=== PATIENT | female | born 1955 | race Caucasian/White ===

== ENCOUNTER 2019-02-21 14:54 | Day surgery (SDC) | payer BC, OTHER ==
[~2019-02-21] VITALS: Ht 160 cm; Wt 54.8 kg
[2019-02-21] VITALS (8 sets, daily range): BP systolic 115–162; BP diastolic 67–88
[~2019-02-21 14:54] MED LIST changes: -DULO30CA48; -LEVO100T; -LISI-556; -ROSU5TAB12
--- OUTSIDE RECORDS SUMMARY | 2019-02-21 15:07 | XMS REPORT | Continuity of Care Document ---
Author Organization Unknown Address Unknown Allergies Active Description Code Type Severity Reaction Onset Reported/Identified Relationship to Patient Clinical Status Yes No Known Allergies Drug Allergy 09/14/2012 Yes No Known Drug Allergies Drug Allergy 09/14/2012 Yes No Known Food Allergies Food Allergy 09/14/2012 Medications There is no data. Problems Date Dx Coded Attending Type Code Diagnosis Diagnosed By 09/15/2012 Aj Lamb MD Final 244.9 HYPOTHYROIDISM NOS 09/15/2012 Aj Lamb MD Final 272.4 HYPERLIPIDEMIA NEC NOS 09/15/2012 Aj Lamb MD Final 285.1 ACUTE POSTHEMOR ANEMIA 09/15/2012 Aj Lamb MD Final 414.01 COR -HOP[place] VESSEL 09/15/2012 Aj Lamb MD Final 786.59 CHEST PAIN NEC 09/15/2012 Aj Lamb MD Final 998.12 HEMATOMA COMPLICATING PX Procedures Code Description Performed By Performed On 00.40 PX ON 1 VESSEL Tony Thurston MD 09/14/2012 00.46 INSERT 2 VASC STENTS Tony Thurston MD 09/14/2012 00.66 PTCA/ATHERECTOMY Tony Thurston MD 09/14/2012 36.07 DRUG-ELUTING COR STENT Tony Thurston MD 09/14/2012 88.53 LT HEART ANGIOCARDIOGRAM Tony Thurston MD 09/14/2012 88.56 COR ARTERIOGRAM-2 CATH Tony Thurston MD 09/14/2012 Results Radiology Report from [id number] on 09/14/2012 17:06:00 Final ReportADMITTING DIAGNOSIS: CAD, Chest pain r/o pseudoaneurysmCT ABD/PELVIS W/O - 09/14/[address] [facility] [address] [facility]: INDICATION: HematomaMultiple contiguous noncontrasted axial CT images of the abdomenand pelvis are obtained. There is no previous study available atthis time for comparisonUnenhanced images of the liver, spleen and pancreas areunremarkable. No adrenal abnormality is identified. Both kidneysare excreting contrast from previous arteriogram study. There isno abdominal free fluid. Within the pelvis, there is a moderateamount of hematoma in the right inguinal region as well aswithin the anterior pelvic wall and in the extraperitoneal spaceresulting in deformity of the decompressed bladder. Evaluationfor active extravasation is limited without intravenouscontrast. There is an approximately 2.5 cm in diameter roundedhigh density nodule in the subcutaneous cutaneous tissues in theright groin within approximately 1.5 cm of the right commonfemoral artery. This could represent a pseudoaneurysm. Note ismade of what appears to be a left femoral arterial catheterreaching the external iliac artery.IMPRESSION: Moderate right inguinal and anterior pelvic wallhematoma with moderate amount of extraperitoneal hematoma in thepelvis resulting in compression of the bladder. In addition,there is an approximately 2.5 cm in diameter rounded structurein the anterior right inguinal region which could represent apseudoaneurysm. If warranted, ultrasonography may be useful forfurther assessment.Dictated on workstation # [id number] BY: HEATHER PORTER M.D., RADIOLOG ISTELECTRONICALLY SIGNED BY: HEATHER PORTER M.D., RADIOLOGISTD Sep 14 2012 4:36PT PH : Sep 14 2012 5:04PS Sep 14 2012 5:04P Radiology Report from [id number] on 09/14/2012 18:12:00 Final ReportADMITTING DIAGNOSIS: CAD, Chest pain r/o pseuaneursymCTA ABD/PELVIS W OR W/WO POST - 09/14/2012 [facility]P ON [facility] RESULT: INDICATION: Patient is status post heart catheterization. Thepatient has a retroperitoneal hematoma and questionablepseudoaneurysm, right groin.EXAMINATION: Axial imaging through the abdomen and pelvis wasperformed before and after the administration of intravenouscontrast utilizing CT angiography protocol.COMPARISON: Noncontrast CT from earlier the same day.FINDINGS: The lung bases are clear. The liver and spleen areunremarkable. Extrahepatic bile duct is prominent, likely owingto postcholecystectomy state. The pancreas, adrenal glands andkidneys are unremarkable. The abdominal aorta is normal incaliber. No free fluid in the abdomen is seen.Imaging through the pelvis again shows high density materialthroughout the pelvis and retroperitoneum, consistent withhemorrhage. This is similar to the CT performed earlier. Thereis an area of contrast blush in the right lower quadrant medialto the right common femoral artery. This blush measuresapproximately 10 mm in size and is suggestive of acute arterialextravasation. Whether this is contained within a pseudoaneurysmis difficult to determine. Ultrasound may be useful for furtherevaluation. This is more superior to the area of rounded densitydescribed on earlier CT. No other areas of active arterialextravasation are identified. Mass effect on the urinary bladderis again noted.IMPRESSION: 1. Large amount of retroperitoneal hemorrhage within the pelvis.There is a small focus of active arterial extravasation noted inthe right groin just medial to the right common femoral artery,measuring 10 mm in size. Ultrasound may be useful to determineif this is contained within a pseudoaneurysm.2. Results were discussed with Dr. Thurston prior to thisdictation.Dictated on workstation # [id number] BY: MELI POWERS M.D., RADIOLOGISTELECTRONICALLY SIGNED BY: MELI POWERS M.D., RADIOLOGISTD Sep 14 2012 5:21PT PJE: Sep 14 2012 6:10PS Sep 14 2012 6:10P Encounters ACCT No. Visit Date/Time Discharge Status Pt. Type Provider Facility Loc./Unit Complaint [id number] 09/14/2012 10:56:00 09/16/2012 16:26:00 DIS Inpatient Adonis WRIGHT, Aj Fowler [facility] on [address]
[2019-02-21 15:11] LABS: BASOPHILS % (AUTO) 0 % (0-10); EOSINOPHILS % (AUTO) 1 % (0-10); HEMATOCRIT 41 % (35-52); HEMOGLOBIN 14.2 G/DL (11.5-16.0); LYMPHOCYTES # (AUTO) 1.8 X 10^3 (1.0-4.0); LYMPHOCYTES % (AUTO) 27 % (12-44); MEAN CORPUSCULAR HEMOGLOBIN 30 PG (25-34); MEAN CORPUSCULAR HGB CONC 34 G/DL (32-36); MEAN CORPUSCULAR VOLUME 88 FL (80-99); MONOCYTES # (AUTO) 0.5 X 10^3 (0.0-1.0); MONOCYTES % (AUTO) 8 % (0-12); NEUTROPHILS # (AUTO) 4.2 X 10^3 (1.8-7.8); NEUTROPHILS % (AUTO) 65 % (42-75); PLATELET COUNT 234 10^3/uL (130-400); RED CELL DISTRIBUTION WIDTH 12.2 % (10.0-14.5); WHITE BLOOD COUNT 6.5 10^3/uL (4.3-11.0)
[2019-02-21] MEDS ORDERED: LEVO100T (15:17)
[2019-02-21] MEDS ORDERED: DULO30CA48 (15:17)
[2019-02-21] MEDS ORDERED: LISI-556 (15:17)
[2019-02-21] MEDS ORDERED: ROSU5TAB12 (15:17)
[2019-02-21 15:23] LABS: INR 0.9 (0.8-1.4); PROTHROMBIN TIME PATIENT 12.3 SEC (12.2-14.7)
[2019-02-21 15:29] LABS: ALANINE AMINOTRANSFERASE 17 U/L (0-55); ALBUMIN 4.4 GM/DL (3.2-4.5); ALKALINE PHOSPHATASE 71 U/L (40-136); BILIRUBIN,TOTAL 0.3 MG/DL (0.1-1.0); BUN/CREATININE RATIO 17; CALCIUM 9.5 MG/DL (8.5-10.1); CARBON DIOXIDE 21 MMOL/L (21-32); CHLORIDE 106 MMOL/L (98-107); CREATININE SERUM 0.69 MG/DL (0.60-1.30); GFR ESTIMATED > 60; GLUCOSE 93 MG/DL (70-105); MAGNESIUM 1.8 MG/DL (1.8-2.4); SODIUM 140 MMOL/L (135-145); TOTAL PROTEIN 6.9 GM/DL (6.4-8.2)
--- NOTE | 2019-02-21 15:37 | Diagnostic Imaging Report ---
INDICATION: Chest pain. TIME OF EXAM: 03:13 p.m. Correlation is made with prior study from 08/06/2012. FINDINGS: The heart size is normal. The pulmonary vascularity is unremarkable. The lungs are clear. No infiltrate, effusion or pneumothorax is detected. IMPRESSION: No acute cardiopulmonary process is detected. Dictated by: Dictated on workstation # [id number]
--- OUTSIDE RECORDS SUMMARY | 2019-02-21 15:45 | XMS REPORT | Continuity of Care Document ---
[...] 09/15/2012 Aj Lamb MD Final 414.01 COR -POINT LAY IRA VESSEL 09/15/2012 Aj Lamb MD Final 786.59 [...] Thurston MD 09/14/2012 Results Radiology Report from [id number] on 09/14/2012 17:06:00 Final ReportADMITTING DIAGNOSIS: CAD, [...] be useful forfurther assessment.Dictated on workstation # [id number] BY: HEATHER PORTER M.D., RADIOLOG ISTELECTRONICALLY SIGNED BY: HEATHER PORTER M.D., RADIOLOGISTD Sep 14 2012 4:36PT PH : Sep 14 2012 5:04PS Sep 14 2012 5:04P Radiology Report from [id number] on 09/14/2012 18:12:00 Final ReportADMITTING DIAGNOSIS: CAD, Chest pain r/o pseuaneursymCTA ABD/PELVIS W OR W/WO POST - 09/14/2012 HOSP ON [facility] RESULT: INDICATION: Patient is status post [...] Thurston prior to thisdictation.Dictated on workstation # [id number] BY: MELI POWERS M.D., RADIOLOGISTELECTRONICALLY SIGNED BY: MELI POWERS M.D., RADIOLOGISTD Sep 14 2012 5:21PT PJE: Sep 14 2012 6:10PS Sep 14 2012 6:10P Encounters ACCT No. Visit Date/Time Discharge Status Pt. Type Provider Facility Loc./Unit Complaint [id number] 09/14/2012 10:56:00 09/16/2012 16:26:00 DIS Inpatient Adonis WRIGHT, Aj Fowler [facility] on [address]
[2019-02-21] MEDS ORDERED: NS IV 1000 ML 2,000 ML ONE (15:49)
[2019-02-21] MEDS ORDERED: LIDOCAINE 1% INJ 20 ML 20 ML VIAL ONE (15:49)
[2019-02-21] MEDS ORDERED: HEParin (CATH LAB) 2,000 ML IV ONE (15:50)
--- NOTE | 2019-02-21 15:54 | ED Chest Pain ---
General Chief Complaint: Chest Pain Stated Complaint: CP Nursing Triage Note: sent over from DR hernandez office with a high troponin Nursing Sepsis Screen: No Definite Risk Source: patient Exam Limitations: no limitations History of Present Illness Date Seen by Provider: February 21, 2019 Time Seen by Provider: 15:30 Initial Comments Patient presents with chest pain since intermittent lasting less than 10:15 minutes. She has a history of stents and heart disease. Pains in the center chest nonradiating. Went to her doctor had an elevated troponin. He get an EKG on her which showed minimal depression faxed to the ER and sent her over. Allergies and Home Medications Allergies Coded Allergies: No Known Drug Allergies (Verified , 02/21/19) Home Medications Aspirin 81 Mg Tabec, 81 MG PO DAILY, (Reported) Clopidogrel 75 Mg Tablet, 75 MG PO DAILY, (Reported) Levothyroxine Sodium 150 Mcg Tablet, 150 MCG PO DAILY, (Reported) Patient Home Medication List Home Medication List Reviewed: Yes Review of Systems Review of Systems Constitutional: No chills, No diaphoresis EENTM: No Blurred Vision, No Double Vision Respiratory: Denies Cough, Denies Orthopnea Cardiovascular: See HPI, Chest Pain (not presently) Past Ptyrapt-Heauqw-Zgcqch Hx Patient Social History Alcohol Use: Denies Use Recreational Drug Use: No Smoking Status: Former Smoker Former Smoker, Quit: February 15, 2018 2nd Hand Smoke Exposure: No Recent Foreign Travel: No Contact w/Someone Who Travel: No Recent Infectious Disease Expo: No Recent Hopitalizations: Yes Immunizations Up To Date Date of Influenza Vaccine: Jul 03, 2012 Seasonal Allergies Seasonal Allergies: Yes Past Medical History Surgeries: Yes Coronary Stent, Gallbladder, Hysterectomy Respiratory: No Cardiac: No Hypertension Neurological: No Reproductive Disorders: No RN OR LVN History: Hysterectomy Sexually Transmitted Disease: No Genitourinary: No Gastrointestinal: No Musculoskeletal: No Endocrine: No HEENT: No Cancer: No Psychosocial: No Integumentary: No Blood Disorders: No Physical Exam Vital Signs Vital Signs - First Documented 02/21/19 14:57 Temp 98.5 Pulse 103 Resp 18 B/P (MAP) 126/91 (103) Pulse Ox 97 Capillary Refill : Less Than 3 Seconds Height, Weight, BMI Height: 5'3" Weight: 120lbs. 12.8oz. 54.458500oj; 21.25 BMI Method:Stated General Appearance: No Apparent Distress, WD/WN HEENT: PERRL/EOMI, Pharynx Normal, Moist Mucous Membranes Neck: Full Range of Motion, Normal Inspection, Non Tender Respiratory: No Accessory Muscle Use, No Respiratory Distress Cardiovascular: Regular Rate, Rhythm, Normal Peripheral Pulses Gastrointestinal: Normal Bowel Sounds, Non Tender, Soft Neurologic/Psychiatric: Alert, Oriented x3 Progress/Results/Core Measures Results/Orders Lab Results Laboratory Tests Test 02/21/19 15:00 Range/Units White Blood Count 6.5 4.3-11.0 10^3/uL Red Blood Count 4.72 4.35-5.85 10^6/uL Hemoglobin 14.2 11.5-16.0 G/DL Hematocrit 41 35-52 % Mean Corpuscular Volume 88 80-99 FL Mean Corpuscular Hemoglobin 30 25-34 PG Mean Corpuscular Hemoglobin Concent 34 32-36 G/DL Red Cell Distribution Width 12.2 10.0-14.5 % Platelet Count 234 130-400 10^3/uL Mean Platelet Volume 10.0 7.4-10.4 FL Neutrophils (%) (Auto) 65 42-75 % Lymphocytes (%) (Auto) 27 12-44 % Monocytes (%) (Auto) 8 0-12 % Eosinophils (%) (Auto) 1 0-10 % Basophils (%) (Auto) 0 0-10 % Neutrophils # (Auto) 4.2 1.8-7.8 X 10^3 Lymphocytes # (Auto) 1.8 1.0-4.0 X 10^3 Monocytes # (Auto) 0.5 0.0-1.0 X 10^3 Eosinophils # (Auto) 0.0 0.0-0.3 10^3/uL Basophils # (Auto) 0.0 0.0-0.1 10^3/uL Prothrombin Time 12.3 12.2-14.7 SEC INR Comment 0.9 0.8-1.4 Activated Partial Thromboplast Time 35 24-35 SEC Sodium Level 140 135-145 MMOL/L Potassium Level 4.0 3.6-5.0 MMOL/L Chloride Level 106 98-107 MMOL/L Carbon Dioxide Level 21 21-32 MMOL/L Anion Gap 13 5-14 MMOL/L Blood Urea Nitrogen 12 7-18 MG/DL Creatinine 0.69 0.60-1.30 MG/DL Estimat Glomerular Filtration Rate > 60 BUN/Creatinine Ratio 17 Glucose Level 93 70-105 MG/DL Calcium Level 9.5 8.5-10.1 MG/DL Corrected Calcium 9.2 8.5-10.1 MG/DL Magnesium Level 1.8 1.8-2.4 MG/DL Total Bilirubin 0.3 0.1-1.0 MG/DL Aspartate Amino Transf (AST/SGOT) 20 5-34 U/L Alanine Aminotransferase (ALT/SGPT) 17 0-55 U/L Alkaline Phosphatase 71 40-136 U/L Myoglobin 43.5 10.0-92.0 NG/ML Troponin I 0.106 H <0.028 NG/ML Total Protein 6.9 6.4-8.2 GM/DL Albumin 4.4 3.2-4.5 GM/DL My Orders Orders - SUKH VINES Cbc With Automated Diff (02/21/19 15:05) Magnesium (02/21/19 15:05) Chest 1 View, Ap/Pa Only (02/21/19 15:05) Ekg Tracing (02/21/19 15:05) Cardiac Profile 1 (02/21/19 15:05) Comprehensive Metabolic Panel (02/21/19 15:05) Myoglobin Serum (02/21/19 15:05) Protime With Inr (02/21/19 15:05) Partial Thromboplastin Time (02/21/19 15:05) O2 (02/21/19 15:05) Monitor-Rhythm Ecg Trace Only (02/21/19 15:05) Lipid Panel (02/22/19 06:00) Ed Iv/Invasive Line Start (02/21/19 15:05) Vital Signs/I&O 02/21/19 14:57 Temp 98.5 Pulse 103 Resp 18 B/P (MAP) 126/91 (103) Pulse Ox 97 Blood Pressure Mean: 103 Initial ECG Impression Date: February 21, 2019 Initial ECG Rhythm: Normal Sinus Comment Minimal V2, V3 and V4 ST depression 1 box Diagnostic Imaging Diagonstic Imaging: Xray Plain Films/CT/US/NM/MRI: chest Comments NAME: CHELSEA ESTES [facility] REC#: [id number] PHYSICIAN: SUKH VINES MD CC: MELI POWERS MD; SUKH VINES Page 1 of 1 RADIOLOGY REPORT [facility] [place] [place] CC: MELI POWERS MD; SUKH VINES Page 1 of 1 RADIOLOGY REPORT NAME: CHELSEA ESTES [facility] REC#: [id number] PT STATUS: REG SDC : 1955 PHYSICIAN: SUKH VINES MD ADMIT DATE: 02/21/19/CATH Signed Date of Exam: 02/21/19 CHEST 1 VIEW, AP/PA ONLY INDICATION: Chest pain. TIME OF EXAM: 03:13 p.m. Correlation is made with prior study from 08/06/2012. FINDINGS: The heart size is normal. The pulmonary vascularity is unremarkable. The lungs are clear. No infiltrate, effusion or pneumothorax is detected. IMPRESSION: No acute cardiopulmonary process is detected. Dictated by: Dictated on workstation # [id number] Dict: 02/21/19 1534 Trans: 02/21/19 1550 Interpreted by: MELI POWERS MD Electronically signed by: MELI POWERS MD 02/21/19 1550 Reviewed: Reviewed by Me Departure Communication (Admissions) Dr. Salcido came down that the patient in the ER examined her EKG and her and elected to take her to the [facility]. Impression Primary Impression: NSTEMI (non-ST elevated myocardial infarction) Disposition: ADMITTED INPATIENT Condition: Stable Admissions Decision to Admit Reason: Admit from ER (General) Decision to Admit/Date: February 21, 2019 Time/Decision to Admit Time: 15:40 Departure-Patient Inst. Referrals: CUBA MONTES MD (PCP/Family) Primary Care Physician SUKH VINES February 21, 2019 15:54
[2019-02-21] MEDS ORDERED: fentaNYL INJECTION 100 MCG/2 ML AMP ONE (16:07)
[2019-02-21] MEDS ORDERED: MIDAZOLAM 5 MG/5 ML (VERSED) VIAL ONE (16:07)
--- NOTE | 2019-02-21 16:13 | Cardiology History & Physical ---
HPI-Cardiology Cardiology Consultation Date of Consultation 02/21/19 Date of Admission Time Seen by Provider: 16:09 Indication: chest pain HPI 63 years old lady with history of coronary artery disease, had intervention done in 2011 in [facility] with a stent to the right coronary artery, has history of hypertension hyperlipidemia, no recent follow-up was made. She s tarted to have recurrent episodes of chest pain described it as dull in nature in the retrosternal area radiating to the left shoulder and left arm for the past week has been occurring on and off lasting up to 4 hours. Woke up this morning with chest pain radiating to the left shoulder and left arm and went to Dr. Oconnor's office, she had mild EKG changes and slight elevation in troponin. She was sent to the emergency room during my evaluation she was feeling better. Denied any active pain. Denied any palpitation, her troponin has increased compared to the initial troponin was done in Dr. Oconnor's office. PMH-Cardiology Immunizations Up To Date Date of Influenza Vaccine: Jul 03, 2012 Seasonal Allergies Seasonal Allergies: Yes Surgeries Yes Respiratory No Cardiovascular No Neurological No Reproductive System Hx Reproductive Disorders: No Sexually Transmitted Disease: No Hysterectomy Genitourinary No Gastrointestinal No Musculoskeletal No Endocrine No HEENT No Cancer No Psychosocial No Integumentary No Blood Transfusions No Other PMHx described below Social History Patient Social History Marrital Status: Employed/Student: employed Alcohol Use: Denies Use Recreational Drug Use: No Smoking: Former smoker Recent Foreign Travel: No Contact w/other who traveled: No Recent Infectious Disease Expo: No Family Hx Other noncontributory ROS-Cardiology Review of Systems General: No Chills, No Night Sweats, No Fatigue, No Malaise, No Appetite HEENT: No Head Aches, No Visual Changes, No Eye Pain, No Ear Pain, No Dysphasia, No Sinus Congestion, No Post Nasal Drip, No Sore Throat Pulmonary: No Dyspnea, No Cough, No Pleuritic Chest Pain Cardiovascular: Chest Pain; No: Palpitations, Orthopnea, Paroxysmal Noc. Dyspnea, Edema, Lt Headedness Gastrointestinal: No: Nausea, Vomiting, Abdominal Pain, Diarrhea, Constipation, Melena, Hematochezia Genitourinary: No Dysuria, No Frequency, No Incontinence, No Hematuria, No Retention Musculoskeletal: No: neck pain, shoulder pain, arm pain, back pain, hand pain, leg pain, foot pain Neurological: No: Weakness, Numbness, Incoordination, Change in speech, Confusion, Seizures Home Medications & Allergies Allergies: Coded Allergies: No Known Drug Allergies (Verified , 02/21/19) Home Medication List Reviewed: Yes Exam-Cardiology Vital Signs Vital Signs Date Time Temp Pulse Resp B/P (MAP) Pulse Ox O2 Delivery O2 Flow Rate FiO2 02/21/19 14:57 98.5 103 18 126/91 (103) 97 Exam General Appearance: Alert, Oriented X3, Cooperative, No Acute Distress HEENT: Atraumatic, PERRLA Respiratory: Clear to Auscultation, Normal Air Movement Cardiovascular: Regular Rate, Normal S1, Normal S2, No Murmurs Abdominal: Normal Bowel Sounds, Soft, No Tenderness, No Hepatosplenomegaly, No Masses Extremities: No Clubbing, No Cyanosis, No Edema, Normal Pulses, No Tenderness/Swelling Skin: No Rashes, No Breakdown, No Significant Lesion Neuro: Normal Gait, Normal Speech, Strength at 5/5 X4 Ext, Normal Tone, Sensation Intact Psych/Mental Status: Mental Status NL, Mood NL Results Labs Labs Laboratory Tests 02/21/19 15:00: White Blood Count 6.5, Red Blood Count 4.72, Hemoglobin 14.2, Hematocrit 41, Mean Corpuscular Volume 88, Mean Corpuscular Hemoglobin 30, Mean Corpuscular Hemoglobin Concent 34, Red Cell Distribution Width 12.2, Platelet Count 234, Mean Platelet Volume 10.0, Neutrophils (%) (Auto) 65, Lymphocytes (%) (Auto) 27, Monocytes (%) (Auto) 8, Eosinophils (%) (Auto) 1, Basophils (%) (Auto) 0, Neutrophils # (Auto) 4.2, Lymphocytes # (Auto) 1.8, Monocytes # (Auto) 0.5, Eosinophils # (Auto) 0.0, Basophils # (Auto) 0.0, Prothrombin Time 12.3, INR Comment 0.9, Activated Partial Thromboplast Time 35, Sodium Level 140, Potassium Level 4.0, Chloride Level 106, Carbon Dioxide Level 21, Anion Gap 13, Blood Urea Nitrogen 12, Creatinine 0.69, Estimat Glomerular Filtration Rate > 60, BUN/Creatinine Ratio 17, Glucose Level 93, Calcium Level 9.5, Corrected Calcium 9.2, Magnesium Level 1.8, Total Bilirubin 0.3, Aspartate Amino Transf (AST/SGOT) 20, Alanine Aminotransferase (ALT/SGPT) 17, Alkaline Phosphatase 71, Myoglobin 43.5, Troponin I 0.106H, Total Protein 6.9, Albumin 4.4 A/P-Cardiology Admission Diagnosis Non-ST elevation myocardial infarction Coronary artery disease Hypertension Hyperlipidemia Admission Status: Observation Assessment/Plan Non-ST elevation myocardial infarction, has been having unstable angina for the past week, had an episode of chest pain this morning with progressively elevation in troponin level. Discussed the management plan and will proceed w ith emergency cardiac catheterization Coronary artery disease history of failed intervention 2011, she was referred to Dr. Zuniga's [facility] and had 2 stents to the right coronary artery. Does not have the stent cards, no further workup was done recently. Hypertension, I will restart home medication monitor blood pressure Hyperlipidemia, maintained on rosuvastatin. Hypothyroidism Depression Tobaccoism, has stopped smoking recently. encouraged to continue with smoking cessation History of cholecystectomy, hysterectomy BEV LUNDY MD February 21, 2019 16:13
--- NOTE | 2019-02-21 16:14 | Cardiac Procedure Note-CS/ASA ---
Pre-Procedure Note Pre-Op Procedure Note H&P Reviewed The H&P was reviewed, patient examined and no changes noted. Date H&P Reviewed: February 21, 2019 Time H&P Reviewed: 16:13 Conscious Sedation Pre-Proced Time 16:13 ASA Score 3 For ASA 3 and 4: Consider anesthesia and medical clearance. Also, for patients with a history of failed moderate sedation consider anesthesia. Airway Lungs Heart ASA score ASA 1: a normal healthy patient ASA 2: a patient with a mild systemic disease (mid diabetes, controlled hypertension, obesity x ASA 3: a patient with a severe systemic disease that limits activity (angina, COPD, prior Myocardial infarction) ASA 4: a patient with an incapacitating disease that is a constant threat to life (CHF, renal failure) ASA 5: a moribund patient not expected to survive 24 hrs. (ruptured aneurysm) ASA 6: a declared brain- patient whose organs are being harvested. For emergent operations, add the letter E after the classification Mallampati Classification Grade 3 Sedation Plan Analgesia, Amnesia, Plan communicated to team members, Discussed options with patient/fam, Discussed risks with patient/fam The patient is an appropriate candidate to undergo the planned procedure, sedation, and anesthesia. The patient immediately re-assessed prior to indication. BEV LUNDY MD February 21, 2019 16:14
[2019-02-21] MEDS ORDERED: HEParin 1000 UNIT/ML (10ML VIAL) FOR BOLUS ONE (16:43)
[2019-02-21] MEDS ORDERED: NITRO DRIP 25000 MCG/D5W 250 ML IV ONE (16:43)
[2019-02-21] MEDS ORDERED: EPTIFIBATIDE BOLUS 10 ML IV ONE (16:44)
[2019-02-21] MEDS ORDERED: CLOPIDOGREL 300 MG (PLAVIX) TABLET PO ONE (17:07)
[2019-02-21] MEDS ORDERED: PATIENT MAY USE OWN MEDS, ALL PO SCH (17:30)
--- NOTE | 2019-02-21 17:34 | Cardiac Cath Report ---
Cardiac Cath Report Physician (s)/Chemical Applicator (s) Physician BEV LUNDY MD Pre-Procedure Diagnosis Pre-Procedure Diagnosis: coronary artery disease, non-ST elevation myocardial infarction Post-Procedure Note Procedure Start Date: February 21, 2019 Name of Procedure: Left heart catheterization Left ventriculogram Emergency stenting to the circumflex artery Balloon angioplasty to the right coronary artery Findings/Procedure Note PROCEDURE NOTE: 63-year-old lady with history of coronary artery disease history of stenting to the right coronary artery 2011, hypertension hyperlipidemia, admitted with non- ST elevation myocardial infarction, recurrent chest pain with elevated troponin that continue to increase. She was brought from the emergency room for emergency cardiac catheterization possible PTCA. After explaining the procedure to the patient, all pros and cons were explained, all questions were answered. The patient signed the consent and then she was placed on the cardiac catheterization laboratory. Groin was prepped SL fashion local anesthesia was used. Sheath placed in the right femoral artery. Ora right and left catheter were used to access the coronary system. Pigtail was used to access the left ventricular cavity. Left ventriculogram was done. Patient was given 5000 units of heparin, double bolus of Integrilin. FL guide was used to access the left coronary system, had subtotal occlusion of the circumflex artery, BMW wire was advanced carefully and positioned distally predilatation with Emerge 3.0 x 15 mm balloon followed by deployment of Xience Nicol 3.0 x 18 mm drug-eluting stent deployed under 14 hernesto up to 3.07 mm, angiogram showed excellent results, no residual stenosis. Patient has severe in-stent restenosis in the right coronary artery, I advanced JR guide to the right carotid system then advanced BMW wire and parked distally, used emerge 2.5 x 15 mm under elevated pressure up to 16 hernesto expanded the stent with improvement of the in-stent restenosis, about 20-30 percent residual stenosis was noted. At the end of the procedure the sheath was sutured in place FINDINGS: Hemodynamics LV 133/21, end-diastolic pressure 21 Aorta 120/72 mean of 94 ANATOMY: Left Main is free of obstructive disease Left Anterior Descending has mild disease nonobstructive disease Left Circumflex is moderate in size artery, subtotally occluded proximally, successful balloon angioplasty then deployment of Nicol 3.0 x 18 mm expanded to 3.07 mm with excellent results with no residual stenosis Right Coronory Artery has multiple segment of the proximal and mid right coronary artery with severe in-stent restenosis in the midportion, successful balloon angioplasty using emerge 2.5 x 15 mm expanded to 2.6 mm under high- pressure with excellent results, 20-30 percent residual stenosis LV Gram was done showing normal left ventricular size and systolic function estimated ejection fraction 60 percent CONCLUSION: 1. Non-ST HI with Subtotal occlusion of a moderate to large circumflex artery with successful balloon to plasty then deployment of drug-eluting Nicol stent 3.0 x 18 mm expanded to 3.07 mm with excellent results 2. Severe in-stent restenosis in the right coronary artery successful balloon angioplasty using emerge 2.5 x 15 mm with multiple inflation up to 15-16 hernesto with excellent results, 20-30 percent residual stenosis 3. Mild disease in the LAD nonobstructive disease 4. Normal left ventricular size and systolic function estimated ejection fraction 60 percent DISCUSSION AND RECOMMENDATION: I will continue maximizing medical therapy, Educated on avoiding tobacco product, monitor lipids Anesthesia Type: Conscious Sedation Estimated blood loss (mL): 25 ml Contrast Amount: 132 ml Total Radiation Dose: 614 mGy Post-Procedure Diagnosis Post-operative diagnosis: Non-ST elevation myocardial infarction Coronary artery disease Hypertension Hyperlipidemia BEV LUNDY MD February 21, 2019 17:34
[2019-02-21] MEDS ORDERED: ATROPINE INJECTION 1 MG/10 ML SYR (ABBOTT) ONE (20:55)
[2019-02-21] MEDS ORDERED: fentaNYL INJECTION 100 MCG/2 ML AMP IVP ONE (21:00)
[2019-02-21] MEDS: NS IV 1000 ML 1,000 ML IV SCH (22:44)
[2019-02-22] VITALS (8 sets, daily range): BP systolic 91–119; BP diastolic 52–70
[2019-02-22] MEDS: NS IV 1000 ML 1,000 ML IV SCH (03:36)
[2019-02-22 03:46] LABS: HEMOGLOBIN 11.9 G/DL (11.5-16.0); MEAN PLATELET VOLUME 10.4 FL (7.4-10.4); RED CELL DISTRIBUTION WIDTH 12.2 % (10.0-14.5); WHITE BLOOD COUNT 5.3 10^3/uL (4.3-11.0)
[2019-02-22 04:12] LABS: BUN/CREATININE RATIO 14; CALCIUM 8.7 MG/DL (8.5-10.1); CARBON DIOXIDE 20 MMOL/L (21-32); CHLORIDE 111 MMOL/L (98-107); CHOLESTEROL 119 MG/DL (< 200); CREATININE SERUM 0.65 MG/DL (0.60-1.30); GFR ESTIMATED > 60; GLUCOSE 68 MG/DL (70-105); HDL CHOLESTEROL 28 MG/DL (40-60); POTASSIUM 3.6 MMOL/L (3.6-5.0); SODIUM 141 MMOL/L (135-145); TRIGLYCERIDES 125 MG/DL (<150); VLDL CHOLESTEROL 25 MG/DL (5-40)
--- NOTE | 2019-02-22 07:39 | Cardiology Discharge Summary ---
Diagnosis/Chief Complaint Date of Admission February 212018 Date of Discharge February 222018 Admission Diagnosis Non-ST elevation myocardial infarction Coronary artery disease Hypertension Hyperlipidemia Discharge Diagnosis non-ST elevation myocardial infarction Coronary artery disease Hypertension Hyperlipidemia Chief Complaint/HPI Chief Complaint/HPI 63 years old lady with history of coronary artery disease, had intervention done in 2011 in [facility] with a stent to the right coronary artery, has history of hypertension hyperlipidemia, no recent follow-up was made. She started to have recurrent episodes of chest pain described it as dull in nature in the retrosternal area radiating to the left shoulder and left arm for the past week has been occurring on and off lasting up to 4 hours. Woke up this morning with chest pain radiating to the left shoulder and left arm and went to Dr. Oconnor's office, she had mild EKG changes and slight elevation in troponin. She was sent to the emergency room during my evaluation she was feeling better. Denied any active pain. Denied any palpitation, her troponin has increased compared to the initial troponin was done in Dr. Oconnor's office. Discharge Summary Hospital Course Was the Problem List Reviewed?: Yes Hospital Course Non-ST elevation myocardial infarction, emergency cardiac catheterization was done with stenting to the circumflex artery and balloon angioplasty or in-stent restenosis in the right coronary artery Coronary artery disease history of failed intervention 2011, she was [facility] and had 2 stents to the right coronary artery. Does not have the stent cards, no further workup was done recently. Cardiac catheterization report: 1. Non-ST ND with Subtotal occlusion of a moderate to large circumflex artery with successful balloon to plasty then deployment of drug-eluting Nicol stent 3.0 x 18 mm expanded to 3.07 mm with excellent results 2. Severe in-stent restenosis in the right coronary artery successful balloon angioplasty using emerge 2.5 x 15 mm with multiple inflation up to 15-16 hernesto with excellent results, 20-30 percent residual stenosis 3. Mild disease in the LAD nonobstructive disease 4. Normal left ventricular size and systolic function estimated ejection fraction 60 percent Hypertension, well controlled on current medication continue to monitor Hyperlipidemia, maintained on rosuvastatin, well controlled continue to monitor Hypothyroidism, continue on thyroid replacement Depression Tobaccoism, has stopped smoking recently. encouraged to continue with smoking cessation History of cholecystectomy, hysterectomy Labs Laboratory Tests 02/21/19 15:00: Troponin I 0.106H 02/21/19 20:50: Activated Partial Thromboplast Time 44H 02/22/19 03:20: Troponin I 0.939*H, Red Blood Count 4.09L, Chloride Level 111H, Carbon Dioxide Level 20L, Glucose Level 68L, HDL Cholesterol 28L Procedures None. Discharge Physical Examination Allergies: Coded Allergies: No Known Drug Allergies (Verified , 02/21/19) Vitals & I&Os Vital Signs Date Time Temp Pulse Resp B/P (MAP) Pulse Ox O2 Delivery O2 Flow Rate FiO2 02/22/19 06:00 69 10 116/70 (85) Room Air 02/22/19 05:00 96 02/22/19 00:01 97.6 General Appearance: Alert, Oriented X3, Cooperative, No Acute Distress HEENT: Atraumatic, PERRLA Respiratory: Clear to Auscultation, Normal Air Movement Cardiovascular: Regular Rate, Normal S1, Normal S2, No Murmurs Abdominal: Normal Bowel Sounds, Soft, No Tenderness, No Hepatosplenomegaly, No Masses Extremities: No Clubbing, No Cyanosis, No Edema, Normal Pulses, No Tenderness/Swelling Skin: No Rashes, No Breakdown, No Significant Lesion Neuro: Normal Gait, Normal Speech, Strength at 5/5 X4 Ext, Normal Tone, Sensation Intact, Cranial Nerves 3-12 NL, Reflexes 2+ Psych/Mental Status: Mental Status NL, Mood NL Discharge Home Medications Reviewed and agree with Discharge Medication list on patient's Discharge Instruction sheet Instructions to Patient/Family Please see electronic discharge instructions given to patient. Clinical Quality Measures Admission Status Admission Status: Observation Reason for Inpatient Admission: non-ST elevation myocardial infarction BEV LUNDY MD February 22, 2019 07:39
--- NOTE | 2019-02-22 07:40 | Discharge Inst-Post CATH ---
Discharge Inst-CATH/EP Post Cardiac Cath/EP D/C Inst Follow Up/Plan Appointment with Dr. LUNDY's office in 2-4 weeks <b>CARDIAC CATH/EP PROCEDURE DISCHARGE INSTRUCTIONS</b> Cardiac Rehab Please be expecting a follow up call from Cardiac Rehab within in one week. ACTIVITY * Go Home directly and rest. * Limit activity of the leg (or wrist if it was used) for 7 days including aerobics, swimming, jogging, bicycling, etc. * Restrict stair-climbing for 7 days if possible, if not, climb up with your non-cath leg, then bring together on the same step. * Avoid lifting, pushing, pulling or excessive movement of the affected extremity for 7 days. * Customary sexual activity may be resumed after 2 days-use caution not to use a position that strains or causes pain to the affected extremity. * No driving for 24 hours. * NO SMOKING. * Avoid straining for bowel movements for 7 days. * Gentle walking on level ground is allowed. * Returning to work will depend on the type of procedure and the results. Your doctor will discuss this with you. CALL YOUR DOCTOR FOR ANY OF THE FOLLOWING: *If bleeding from the puncture site occurs- Apply gentle pressure to site with clean cloth and call your doctor or EMS. * If a knot or lump forms under the skin, increases in size, or causes pain. * If bruising appears to be worsening or moving further down your leg instead of disappearing. * Temperature above 101 F. CARE OF YOUR GROIN INCISION; * Bruising or purple discoloration of the skin near the puncture site is common. * You may shower only, no bathtub bathing for 5 days. Be careful to avoid slipping as your leg may feel stiff. * If a closure device was used on your femoral artery, please see the attached guide regarding care of the device and your leg. * Leave dressing on FOR 24 hours. CARE OF YOUR WRIST INCISION; * Bruising or purple discoloration of the skin near the puncture site is common. * You may shower. * DO NOT submerge wrist. * Leave dressing on FOR 24 hours. BEV LUNDY MD February 22, 2019 07:40
[2019-02-22] MEDS ORDERED: DULoxetine 30 MG (CYMBALTA) CAP PO SCH (09:00)
[2019-02-22] MEDS ORDERED: lisINopril 5 MG (PRINIVIL) TABLET PO SCH (09:00)
[2019-02-22] MEDS ORDERED: ROSUVASTATIN 5 MG (CRESTOR) TABLET PO SCH (09:00)
[2019-02-22] MEDS ORDERED: ASPIRIN E.C. 81 MG (ECOTRIN) TAB PO SCH (09:00)
[2019-02-22] MEDS ORDERED: CLOPIDOGREL 75 MG (PLAVIX) TABLET PO SCH (09:00)
[2019-02-22] MEDS ORDERED: LEVOTHYROXINE 100 MCG (LEVOTHROID) TAB PO SCH (09:00)
[2019-02-22] MEDS ORDERED: LEVOTHYROXINE 150 MCG (LEVOTHROID) TAB PO SCH (09:00)
== END 2019-02-22 08:00 ==
LOC: ER 14:54 → EDUNIT# 14:54 → CATH 15:42 → ICU 17:47 → SDC 17:59 → CATH 02-22 08:00
PROVIDERS: ATTEND Internal Medicine Cardiovascular Disease
DX: I21.4 Non-ST elevation (NSTEMI) myocardial infarction (principal); I25.10 Atherosclerotic heart disease of native coronary artery without angina pectoris; I10 Essential (primary) hypertension; E78.5 Hyperlipidemia, unspecified; Z95.5 Presence of coronary angioplasty implant and graft; E03.9 Hypothyroidism, unspecified; F32.9 Major depressive disorder, single episode, unspecified; Z87.891 Personal history of nicotine dependence; Z79.82 Long term (current) use of aspirin; Z79.899 Other long term (current) drug therapy
CPT/HCPCS: 36415; 71045; 80048; 80053; 80061; 83735; 83874; 84484; 85025; 85027; 85610; 85730; 93005; 93041; 93458

== ENCOUNTER → 2019-02-21 | Outpatient (CLI) | payer BC, OTHER ==
[~2019-02-21] MED LIST: ASP81TEC PO; ATOR40TA PO; CEPH500C PO; CLPD75T PO; DULO30CA48; LEVO100T; LEVO175T2 PO; LISI-556; LVT.15T PO; OXYC-12 PO; ROSU5TAB12
[2019-02-21 11:47] LABS: BASOPHILS % (AUTO) 0 % (0-10); EOSINOPHILS % (AUTO) 1 % (0-10); HEMATOCRIT 44 % (35-52); HEMOGLOBIN 14.9 G/DL (11.5-16.0); LYMPHOCYTES # (AUTO) 1.3 X 10^3 (1.0-4.0); LYMPHOCYTES % (AUTO) 18 % (12-44); MEAN CORPUSCULAR HEMOGLOBIN 30 PG (25-34); MEAN CORPUSCULAR HGB CONC 34 G/DL (32-36); MEAN CORPUSCULAR VOLUME 89 FL (80-99); MEAN PLATELET VOLUME 10.2 FL (7.4-10.4); MONOCYTES # (AUTO) 0.4 X 10^3 (0.0-1.0); MONOCYTES % (AUTO) 6 % (0-12); NEUTROPHILS # (AUTO) 5.1 X 10^3 (1.8-7.8); NEUTROPHILS % (AUTO) 75 % (42-75); PLATELET COUNT 229 10^3/uL (130-400); RED CELL DISTRIBUTION WIDTH 12.3 % (10.0-14.5); WHITE BLOOD COUNT 6.9 10^3/uL (4.3-11.0)
[2019-02-21 12:12] LABS: ALANINE AMINOTRANSFERASE 17 U/L (0-55); ALBUMIN 4.5 GM/DL (3.2-4.5); ALKALINE PHOSPHATASE 74 U/L (40-136); BILIRUBIN,TOTAL 0.3 MG/DL (0.1-1.0); BUN/CREATININE RATIO 18; CALCIUM 9.7 MG/DL (8.5-10.1); CARBON DIOXIDE 22 MMOL/L (21-32); CHLORIDE 107 MMOL/L (98-107); CREATININE SERUM 0.71 MG/DL (0.60-1.30); GFR ESTIMATED > 60; GLUCOSE 89 MG/DL (70-105); SODIUM 141 MMOL/L (135-145); TOTAL PROTEIN 7.1 GM/DL (6.4-8.2)
[2019-02-21 12:18] LABS: CREATINE KINASE MB 2.4 NG/ML (<6.6)
== END ==
LOC: LAB 11:25
PROVIDERS: ATTEND Nurse Practitioner Family
DX: R07.89 Other chest pain (principal)
CPT/HCPCS: 36415; 80053; 82553; 84484; 85025; 85379

== ENCOUNTER 2019-03-21 14:02 | Outpatient (RCR) | payer OTHER ==
[~2019-03-21 14:02] MED LIST changes: +DULO30CA48; +LEVO100T; +LISI-556; +ROSU5TAB12
== END 2019-04-13 | disposition home or self-care (01) ==
LOC: CR3 14:02
PROVIDERS: ATTEND Physician Assistant
DX: Z29.8 Encounter for other specified prophylactic measures (principal)

== ENCOUNTER → 2019-06-27 | Outpatient (CLI) | payer OTHER ==
[~2019-06-27] MED LIST changes: -DULO30CA48; +DULO30CA49; -ROSU5TAB12; +ROSU5TAB13
[2019-06-27 09:13] LABS: ALANINE AMINOTRANSFERASE 19 U/L (0-55); ALBUMIN 4.3 GM/DL (3.2-4.5); ALKALINE PHOSPHATASE 69 U/L (40-136); BILIRUBIN,TOTAL 0.3 MG/DL (0.1-1.0); BUN/CREATININE RATIO 14; CALCIUM 9.7 MG/DL (8.5-10.1); CARBON DIOXIDE 26 MMOL/L (21-32); CHLORIDE 108 MMOL/L (98-107); CHOLESTEROL 150 MG/DL (< 200); CREATININE SERUM 0.65 MG/DL (0.60-1.30); GFR ESTIMATED > 60; GLUCOSE 91 MG/DL (70-105); HDL CHOLESTEROL 36 MG/DL (40-60); POTASSIUM 4.4 MMOL/L (3.6-5.0); SODIUM 142 MMOL/L (135-145); TOTAL PROTEIN 7.1 GM/DL (6.4-8.2); TRIGLYCERIDES 140 MG/DL (<150); VLDL CHOLESTEROL 28 MG/DL (5-40)
== END ==
LOC: LAB 08:39
PROVIDERS: ATTEND Internal Medicine Cardiovascular Disease
DX: I25.10 Atherosclerotic heart disease of native coronary artery without angina pectoris (principal); E78.2 Mixed hyperlipidemia; R94.31 Abnormal electrocardiogram [ECG] [EKG]
CPT/HCPCS: 36415; 80053; 80061

== ENCOUNTER → 2020-12-25 | Outpatient (CLI) | payer OTHER ==
[~2020-12-25] MED LIST changes: -LISI-556; +LISI-729
[2020-12-25 09:33] LABS: BASOPHILS % (AUTO) 0 % (0-10); EOSINOPHILS # (AUTO) 0.1 10^3/uL (0.0-0.3); EOSINOPHILS % (AUTO) 2 % (0-10); HEMATOCRIT 43 % (35-52); LYMPHOCYTES # (AUTO) 1.7 10^3/uL (1.0-4.0); LYMPHOCYTES % (AUTO) 25 % (12-44); MEAN CORPUSCULAR HEMOGLOBIN 30 pg (25-34); MEAN CORPUSCULAR HGB CONC 33 g/dL (32-36); MEAN CORPUSCULAR VOLUME 92 fL (80-99); MEAN PLATELET VOLUME 10.1 fL (9.0-12.2); MONOCYTES # (AUTO) 0.4 10^3/uL (0.0-1.0); MONOCYTES % (AUTO) 6 % (0-12); NEUTROPHILS # (AUTO) 4.6 10^3/uL (1.8-7.8); NEUTROPHILS % (AUTO) 67 % (42-75); PLATELET COUNT 240 10^3/uL (130-400); WHITE BLOOD COUNT 6.8 10^3/uL (4.3-11.0)
[2020-12-25 09:55] LABS: ALANINE AMINOTRANSFERASE 19 U/L (0-55); ALBUMIN 4.1 GM/DL (3.2-4.5); ALKALINE PHOSPHATASE 64 U/L (40-136); BILIRUBIN,TOTAL 0.4 MG/DL (0.1-1.0); BUN/CREATININE RATIO 22; CALCIUM 9.1 MG/DL (8.5-10.1); CARBON DIOXIDE 23 MMOL/L (21-32); CHLORIDE 106 MMOL/L (98-107); CHOLESTEROL 150 MG/DL (< 200); CREATININE SERUM 0.68 MG/DL (0.60-1.30); GFR ESTIMATED > 60; GLUCOSE 137 MG/DL (70-105); HDL CHOLESTEROL 38 MG/DL (40-60); POTASSIUM 3.9 MMOL/L (3.6-5.0); SODIUM 139 MMOL/L (135-145); TOTAL PROTEIN 6.7 GM/DL (6.4-8.2); TRIGLYCERIDES 165 MG/DL (<150); VLDL CHOLESTEROL 33 MG/DL (5-40)
== END ==
LOC: LAB 09:13
DX: E78.2 Mixed hyperlipidemia (principal); R53.83 Other fatigue
CPT/HCPCS: 36415; 80053; 80061; 84443; 85025

== ENCOUNTER → 2021-03-03 | Outpatient (CLI) | payer OTHER | LOC: RAD | DX: S99.921A Unspecified injury of right foot, initial encounter (principal); X58.XXXA Exposure to other specified factors, initial encounter ==

== ENCOUNTER → 2021-03-03 | Outpatient (CLI) | payer OTHER ==
--- NOTE | 2021-03-03 14:18 | Diagnostic Imaging Report ---
INDICATION: Injury COMPARISON: None available TECHNIQUE: 3 radiographs of the right foot toes dated 03/03/2021 FINDINGS: Acute essentially nondisplaced oblique fracturing of the 3rd digit proximal phalanx is identified without definite intra-articular extension. No additional fracture or dislocation. No destructive osseous process. Mild scattered degenerative changes, greatest involving the 1st MTP joint. IMPRESSION: Acute essentially nondisplaced fracturing involving the mid shaft of the 3rd digit proximal phalanx without intra-articular extension. Mild scattered degenerative changes. Dictated by: Dictated on workstation # [id number]
== END ==
LOC: RAD 10:40
DX: S92.911A Unspecified fracture of right toe(s), initial encounter for closed fracture (principal); X58.XXXA Exposure to other specified factors, initial encounter; M19.071 Primary osteoarthritis, right ankle and foot
CPT/HCPCS: 73660

== ENCOUNTER → 2021-04-29 | Outpatient (CLI) | payer OTHER ==
[2021-04-29 15:42] LABS: HEMATOCRIT 44 % (35-52); HEMOGLOBIN 14.6 g/dL (11.5-16.0); MEAN CORPUSCULAR HEMOGLOBIN 30 pg (25-34); MEAN CORPUSCULAR HGB CONC 33 g/dL (32-36); MEAN CORPUSCULAR VOLUME 93 fL (80-99); MEAN PLATELET VOLUME 10.2 fL (9.0-12.2); PLATELET COUNT 251 10^3/uL (130-400); WHITE BLOOD COUNT 8.6 10^3/uL (4.3-11.0)
[2021-04-29 15:53] LABS: ALBUMIN 4.4 GM/DL (3.2-4.5); POTASSIUM 4.5 MMOL/L (3.6-5.0)
[2021-04-29 15:54] LABS: CALCIUM 9.6 MG/DL (8.5-10.1)
[2021-04-29 15:56] LABS: TOTAL PROTEIN 7.3 GM/DL (6.4-8.2)
[2021-04-29 15:57] LABS: BILIRUBIN,TOTAL 0.2 MG/DL (0.1-1.0)
[2021-04-29 15:59] LABS: CREATININE SERUM 0.73 MG/DL (0.60-1.30)
== END ==
LOC: LAB 15:16
DX: E78.5 Hyperlipidemia, unspecified (principal); R53.83 Other fatigue
CPT/HCPCS: 36415; 80053; 80061; 84443; 85027

== ENCOUNTER → 2021-10-21 | Outpatient (CLI) | payer OTHER ==
[~2021-10-21] MED LIST changes: -LISI-729; +LISI5TAB20
== END ==
LOC: CARD 13:00
PROVIDERS: ATTEND Internal Medicine Cardiovascular Disease
DX: I35.8 Other nonrheumatic aortic valve disorders (principal); I10 Essential (primary) hypertension; I25.10 Atherosclerotic heart disease of native coronary artery without angina pectoris
CPT/HCPCS: 93306

== ENCOUNTER → 2021-12-02 | Outpatient (CLI) | payer OTHER ==
[~2021-12-02] MED LIST changes: +CATHETER FLUSH 10 ML SYR IVP PRN
[2021-12-02 09:27] VITALS: BP 119/65
[2021-12-02 09:37] VITALS: BP 154/80
--- NOTE | 2021-12-02 16:10 | Cardiology Stress Test Report ---
Stress Test Report Date of Procedure/Referring: Date of Procedure: Dec 02, 2021 PCP Bev Salcido MD Admitting Physician Les Oconnor MD Indications: HTN Baseline Heart Rate: 71 Baseline Blood Pressure: Blood Pressure Systolic: 154 Blood Pressure Diastolic: 80 Vital Signs Date Time Temp Pulse Resp B/P (MAP) Pulse Ox O2 Delivery O2 Flow Rate FiO2 12/02/21 09:27 72 18 119/65 (83) 98 Room Air Baseline Vital Signs Vital Signs Date Time Temp Pulse Resp B/P (MAP) Pulse Ox O2 Delivery O2 Flow Rate FiO2 12/02/21 09:27 72 18 119/65 (83) 98 Room Air Baseline EKG: Baseline EKG: NSR Summary: After explaining the procedure and details to the patient, she signed the consent and was brought to the stress nuclear laboratory. Patient exercised on standard Ameya protocol, EKG, heart rate and blood pressure were monitored continuously, resting and stress doses of radio tracer were injected, imaging was acquired and reviewed in the short axis, horizontal long axis and vertical long axis views Patient was able to exercise for a total of 7 minutes on Ameya protocol, METs 8.5 Maximum heart rate 137 Maximum blood pressure 156/85 Stress EKG, Minimal nondiagnostic changes Recovery EKG, Return to baseline TID: 1.03 SSS: 1 SDS: 1 EF: 69 Conclusion: 1. Good exercise tolerance for a total of 7 minutes on standard Ameya protocol, 8.5 METS achieving 88% of maximal expected heart rate 2. Appropriate heart rate and blood pressure response to exercise return to baseline during recovery 3. Minimal nondiagnostic EKG changes with exercise return to baseline during recovery 4. No significant ischemia or infarction was noted on SPECT images 5. Normal left ventricular size, EF 69% BEV SALCIDO MD Dec 02, 2021 16:10
== END ==
LOC: CARD 08:00
PROVIDERS: ATTEND Internal Medicine Cardiovascular Disease
DX: I10 Essential (primary) hypertension (principal); I25.10 Atherosclerotic heart disease of native coronary artery without angina pectoris
CPT/HCPCS: 78452; 93017; A9502

== ENCOUNTER → 2022-04-20 | Outpatient (CLI) | payer OTHER ==
[~2022-04-20] MED LIST changes: -CATHETER FLUSH 10 ML SYR IVP PRN
--- NOTE | 2022-04-20 14:34 | Diagnostic Imaging Report ---
INDICATION: Postmenopausal screening COMPARISON: None FINDINGS: AP Spine L1-L4: [BMD (g/cm2): 1.113] [T-Score: -0.7] [Z-Score: 1.4] [BMD Previous: na] [BMD % Change: na] LT Hip Neck: [BMD (g/cm2): 0.729] [T-Score: -2.2] [Z-Score: -0.4] LT Hip Total: [BMD (g/cm2):0.718] [T-Score:-2.3] [Z-Score: -0.7] [BMD Previous: na] [BMD % Change: na] RT Hip Neck: [BMD (g/cm2):0.800] [T-Score:-1.7] [Z-Score:0.1] RT Hip Total: [BMD (g/cm2):0.747] [T-score:-2.1] [Z-Score:-05] [BMD Previous:na] [BMD % Change:na] *Indicates significant change from prior examination based on 95% confidence level. World Health Organization criteria for BMD interpretation classify patients as Normal (T-score at or above -1.0), Osteopenic (T-score between -1.0 and -2.5) or Osteoporotic (T-score at or below -2.5). LIMITATIONS AND MODIFICATION: None. FRACTURE RISK (FRAX SCORE): The ten year probability of (%): Major Osteoporotic Fracture: [17.1] Hip Fracture: [3.5] IMPRESSION: 1. Osteopenia (Low bone mass). 2. See below National Osteoporosis Foundation guidelines on when to potentially initiate pharmacologic therapy. Based on the National Osteoporosis Foundation Guidelines, pharmacologic treatment should be initiated in any of the following, unless clinical conditions suggest otherwise: * Any patient with prior fragility fracture of the hip or vertebrae. A spine fracture indicates 5X risk for subsequent spine fracture and 2X risk for subsequent hip fracture. * Osteoporosis (T-score <-2.5). * Postmenopausal women and men age 50 and older with low bone mass/osteopenia (T-score between -1.0 and -2.5) by DXA and 10-year major osteoporotic fracture greater than 20% or a 10-year probability of hip fracture greater than 3%. These fracture risks are supplied above in the FRAX score, if applicable. * Clinician judgement and/or patient preferences may indicate treatment for people with 10-year fracture probabilities above or below these levels. Dictated by: Dictated on workstation # [id number]
== END ==
LOC: RAD 13:30
PROVIDERS: ATTEND Pediatrics
DX: Z13.820 Encounter for screening for osteoporosis (principal); M85.841 Other specified disorders of bone density and structure, right hand; M85.842 Other specified disorders of bone density and structure, left hand; Z78.0 Asymptomatic menopausal state
CPT/HCPCS: 77080

== ENCOUNTER → 2022-08-16 | Outpatient (CLI) | payer OTHER ==
[2022-08-16 10:31] LABS: ALBUMIN 4.3 GM/DL (3.2-4.5); BILIRUBIN,TOTAL 0.4 MG/DL (0.1-1.0); CALCIUM 9.3 MG/DL (8.5-10.1); CREATININE SERUM 0.72 MG/DL (0.60-1.30); POTASSIUM 4.5 MMOL/L (3.6-5.0); TOTAL PROTEIN 6.9 GM/DL (6.4-8.2)
== END ==
LOC: LAB 09:41
PROVIDERS: ATTEND Internal Medicine Cardiovascular Disease
DX: E78.2 Mixed hyperlipidemia (principal); I25.10 Atherosclerotic heart disease of native coronary artery without angina pectoris; R94.31 Abnormal electrocardiogram [ECG] [EKG]; I10 Essential (primary) hypertension; I65.23 Occlusion and stenosis of bilateral carotid arteries
CPT/HCPCS: 36415; 80053; 80061; 83036; 84443

== ENCOUNTER → 2022-09-23 | Outpatient (CLI) | payer OTHER ==
--- NOTE | 2022-09-23 13:45 | Diagnostic Imaging Report ---
INDICATION: Routine screening No prior mammograms are available for comparison. 2-D and 3-D bilateral screening mammography was performed with CAD. Both breasts are heterogeneously dense, limiting the sensitivity of mammography. No mass or malignant-appearing microcalcifications are seen. Axillae are unremarkable. IMPRESSION: No mammographic features suspicious for malignancy are identified. ACR BI-RADS Category 1: Negative. Result letter will be mailed to the patient. Note: At least 10% of breast cancer is not imaged by mammography. BI-RADS Category 1 Dictated by: Dictated on workstation # [id number]
== END ==
LOC: RAD 10:29
PROVIDERS: ATTEND Internal Medicine
DX: Z12.31 Encounter for screening mammogram for malignant neoplasm of breast (principal)
CPT/HCPCS: 77063; 77067

== ENCOUNTER → 2023-05-17 | Outpatient (CLI) | payer OTHER ==
[2023-05-17 11:26] LABS: ALBUMIN 4.2 GM/DL (3.2-4.5); BILIRUBIN,TOTAL 0.3 MG/DL (0.1-1.0); CALCIUM 9.4 MG/DL (8.5-10.1); CREATININE SERUM 0.75 MG/DL (0.60-1.30); POTASSIUM 4.1 MMOL/L (3.6-5.0); TOTAL PROTEIN 6.5 GM/DL (6.4-8.2)
[2023-05-17 11:47] LABS: FREE T4 (FREE THYROXINE) 1.15 NG/DL (0.70-1.48)
== END ==
LOC: LAB 10:34
PROVIDERS: ATTEND Internal Medicine
DX: Z13.6 Encounter for screening for cardiovascular disorders (principal); E03.9 Hypothyroidism, unspecified; I10 Essential (primary) hypertension
CPT/HCPCS: 36415; 80053; 82465; 84439; 84443; 84478